=== PATIENT | female | born 1945 | race Hispanic/Latino ===

== ENCOUNTER → 2018-07-15 | Outpatient (CLI) | payer OTHER | END | disposition home or self-care (01) | LOC: RAH 09:10 | PROVIDERS: ATTEND Family Medicine | DX: Z12.31 Encounter for screening mammogram for malignant neoplasm of breast (principal) | CPT/HCPCS: 77067 ==

== ENCOUNTER → 2020-05-07 | Outpatient (CLI) | payer OTHER | END | disposition home or self-care (01) | LOC: OIH 13:11 | PROVIDERS: ATTEND Internal Medicine | DX: R05 Cough (principal); M47.814 Spondylosis without myelopathy or radiculopathy, thoracic region; I70.0 Atherosclerosis of aorta | CPT/HCPCS: 71046 ==

== ENCOUNTER → 2020-09-09 | Outpatient (CLI) | payer OTHER | END | disposition home or self-care (01) | LOC: RAH 15:02 | PROVIDERS: ATTEND Internal Medicine | DX: Z12.31 Encounter for screening mammogram for malignant neoplasm of breast (principal) | CPT/HCPCS: 77067 ==

== ENCOUNTER → 2020-11-26 | Outpatient (CLI) | payer OTHER | END | disposition home or self-care (01) | LOC: OIH 10:47 | PROVIDERS: ATTEND Internal Medicine | DX: I10 Essential (primary) hypertension (principal) | CPT/HCPCS: 71046 ==

== ENCOUNTER → 2021-03-18 | Outpatient (CLI) | payer OTHER | END | disposition home or self-care (01) | LOC: OIH 10:03 | PROVIDERS: ATTEND Internal Medicine | DX: R04.2 Hemoptysis (principal) | CPT/HCPCS: 71046 ==

== ENCOUNTER → 2021-09-10 | Outpatient (CLI) | payer OTHER | END | disposition home or self-care (01) | LOC: RAH 10:05 | PROVIDERS: ATTEND Internal Medicine | DX: Z12.31 Encounter for screening mammogram for malignant neoplasm of breast (principal) | CPT/HCPCS: 77067 ==

== ENCOUNTER → 2022-09-14 | Outpatient (CLI) | payer OTHER | END | disposition home or self-care (01) | LOC: RAH 10:14 | PROVIDERS: ATTEND Internal Medicine | DX: Z12.31 Encounter for screening mammogram for malignant neoplasm of breast (principal) | CPT/HCPCS: 77067 ==

== ENCOUNTER → 2023-09-15 | Outpatient (CLI) | payer OTHER | END | disposition home or self-care (01) | LOC: RAH 10:41 | PROVIDERS: ATTEND Internal Medicine | DX: Z12.31 Encounter for screening mammogram for malignant neoplasm of breast (principal) | CPT/HCPCS: 77067 ==

== ENCOUNTER → 2025-03-01 | Outpatient (CLI) | payer OTHER ==
--- NOTE | 2025-03-01 18:21 | HMCIMG ---
Exam: Bone mineral densitometry History: Osteoporosis screening. 79-year-old female Comparison: No prior studies are available for comparison. Technique: BMD evaluation at the hip and femur were performed. The following BMD values were obtained: Femoral neck: 0.747 g/cm??? corresponding to a T score of -1.1 and a Z score of 1.1. Total hip: 0.896 g/cm??? corresponding to a T score of -0.5 and a Z score of 1.5. Total spine : 0.969 g/cm??? corresponding to a T score of -0.7 and a Z score of 1.9. 10-year major osteoporotic fracture risk 6.1%/hip fracture 1.1% Conclusion 1. The examination above is compatible with osteopenia based upon the WHO classification system. 2. There are no prior studies for comparison.. 3. The patient is at increased fracture risk based upon this examination. Please note the following: * The World Health Organization, WHO classification is assigned to the lowest resultant T score obtained above. * WHO classifications do not apply to premenopausal women, men younger than 50 and children. For these individuals, Z scores above -2.0 are considered normal for age. For these individuals, Z scores less than -2.0 are considered to have low bone density for age. T-scores should not be utilized for these patients. Please correlate clinically as the patient's age and sex may not be available at the time of interpretation. WHO classification for T-scores: (Used for postmenopausal women and men older than 50 years of age). Normal: -1.0 or greater Osteopenia: Between -1.0 and -2.5 Osteoporosis: Less than -2.5 /[place]
== END | disposition home or self-care (01) ==
LOC: CANSCHCLI → RAH 10:38
PROVIDERS: ATTEND Internal Medicine
DX: Z13.820 Encounter for screening for osteoporosis (principal); Z78.0 Asymptomatic menopausal state
CPT/HCPCS: 77080